=== PATIENT | male | born 1970 | race African-American/Black ===

== ENCOUNTER 2020-06-24 00:41 | Inpatient (IN) | payer OTHER ==
[2020-06-24] VITALS (11 sets, daily range): BP systolic 129–176; BP diastolic 59–102
[~2020-06-24] VITALS: Ht 190.5 cm; Wt 114.3 kg
[2020-06-24 01:54] LABS: ABSOLUTE NEUTROPHILS 4.2 thou/uL (1.4-8.2); BASOPHILS 0.4 % (0.0-2.0); EOSINOPHILS 2.2 % (0.0-3.0); HEMATOCRIT 42.9 % (42.0-52.0); HEMOGLOBIN 14.3 gm/dL (14.0-18.0); LYMPHOCYTES 20.9 % (24.0-44.0); MCH 27.7 pg (26.0-34.0); MCHC 33.3 g/dL (28.0-37.0); MCV 83.2 fL (80.0-100.0); PLATELET COUNT 681 thou/uL (150-400); POLYS 66.5 % (36.0-66.0); RBC 5.16 mil/uL (4.50-6.00); RDW 13.6 % (10.5-14.5); WBC 6.4 thou/uL (4.0-11.0)
[2020-06-24 02:07] LABS: CALCIUM 8.9 mg/dL (8.5-10.1)
[2020-06-24 02:08] LABS: POTASSIUM 3.8 mmol/L (3.5-5.1)
[2020-06-24 02:16] LABS: TROPONIN-I 5.11 ng/mL (<0.06)
[2020-06-24 04:30] LABS: PROTIME 11.3 Seconds (9.3-11.4)
--- NOTE | 2020-06-24 07:13 | EKG ---
[address] [address] ELECTROCARDIOGRAM REPORT Name: GASTON MELVIN Room #: 204-P ADM IN M.R.#: [id number] Admission: 06/24/20 Attend Phys: Ariel Baptiste MD Discharge: Date of : 70 Report #: [id number] [facility] ED Test Date: 2020-06-24 Test Time: 02:26:08 Pat Name: GASTON MELVIN Department: Room: 204 Gender: M Director [facility]: linda : 1970 Requested By: Michelle Ramos Order Number: [id number] : Antonio Boles Measurements Intervals [place] Rate: 68 P: 41 CA: 187 QRS: 14 QRSD: 90 T: 26 QT: 379 QTc: 404 Interpretive Statements Sinus rhythm No previous ECG available for comparison Electronically Signed On 06-24-2020 7:13:47 SUPERVISOR GRINDING by Antonio Boles [email or web address] <ELECTRONICALLY SIGNED> By: Antonio Boles MD, [facility] 06/24/20 0713 0226 0226 Antonio Boles MD, FACC /EPI
--- NOTE | 2020-06-24 07:45 | EKG ---
[place] [address] [facility] [place] [address] ELECTROCARDIOGRAM REPORT Name: GASTON MELVIN Room #: 204-P ADM IN M.R.#: [id number] Admission: 06/24/20 Attend Phys: Ariel Baptiste MD Discharge: Date of : 70 Report #: [id number] [facility] ED Test Date: 2020-06-24 Test Time: 01:25:42 Pat Name: GASTON MELVIN Department: Room: 204 Gender: M Manager Line: alo : 1970 Requested By: Michelle Ramos Order Number: [id number] MD: Jose Chappell Measurements Intervals [place] Rate: 73 P: 46 OR: 212 QRS: -4 QRSD: 95 T: 14 QT: 386 QTc: 426 Interpretive Statements Sinus rhythm Prolonged OR interval Poor R wave progression No previous ECG available for comparison Electronically Signed On 06-24-2020 7:44:55 QUALITY ASSURANCE ASSOCIATE by Jose Chappell [email or web address] <ELECTRONICALLY SIGNED> By: Jose Chappell MD, [facility] 06/24/20 0744 0125 0125 Jose Chappell MD, FACC /EPI
[2020-06-24 08:15] LABS: CHOLESTEROL 235 mg/dL (<200); HDL CHOLESTEROL 56 mg/dL (>40); LDL CHOLESTEROL 165 mg/dL (<100); TC:HDL 4.2 Ratio (Not establshd); TRIGLYCERIDE 73 mg/dL (<150); VLDL 15 mg/dL (<40)
[2020-06-24 08:23] LABS: TROPONIN-I 9.62 ng/mL (<0.06)
[2020-06-24 23:06] LABS: GLYCOHEMOGLOBIN (HGB A1C) 5.6 % (4.8-5.6)
[2020-06-25 02:20] VITALS: BP 140/94
[2020-06-25 03:51] VITALS: BP 152/100
[2020-06-25 04:04] LABS: HEMOGLOBIN 15.2 gm/dL (14.0-18.0)
[2020-06-25 04:06] LABS: ABSOLUTE NEUTROPHILS 5.3 thou/uL (1.4-8.2); BASOPHILS 0.3 % (0.0-2.0); EOSINOPHILS 1.2 % (0.0-3.0); HEMATOCRIT 45.7 % (42.0-52.0); LYMPHOCYTES 11.9 % (24.0-44.0); MCH 27.6 pg (26.0-34.0); MCHC 33.3 g/dL (28.0-37.0); MCV 82.8 fL (80.0-100.0); MONOCYTES 6.3 % (1.0-8.0); PLATELET COUNT 699 thou/uL (150-400); POLYS 80.3 % (36.0-66.0); RBC 5.51 mil/uL (4.50-6.00); RDW 13.7 % (10.5-14.5); WBC 6.6 thou/uL (4.0-11.0)
[2020-06-25 05:13] LABS: ALBUMIN 3.8 g/dL (3.4-5.0); CALCIUM 9.2 mg/dL (8.5-10.1); CREATININE 1.1 mg/dL (0.7-1.3); POTASSIUM 3.6 mmol/L (3.5-5.1); TOTAL BILIRUBIN 0.7 mg/dL (0.2-1.0); TOTAL PROTEIN 7.5 g/dL (6.4-8.2)
[2020-06-25 05:15] LABS: TROPONIN-I 14.95 ng/mL (<0.06)
--- NOTE | 2020-06-25 11:19 | CATHLAB ---
[facility] [place] [address] [address] [place] [address] INVASIVE PROCEDURE REPORT Name: GASTON MELVIN Room #: 206-P ADM IN M.R.#: [id number] Admission: 06/24/20 Attend Phys: Ariel Baptiste MD Discharge: Date of : 70 Report #: [id number] THIS REPORT FOR: cc: Anjum Sheppard James A. DO Mancuso, Gerald M. MD [facility] ~ APPROVED REPORT Study performed: 06/24/2020 07:42:36 Patient Details Patient Status: In-Patient Room #: 204 The patient is a 50 year-old male Event Personnel Rohit Langston Program Host, Liliya Gaytan RTR ScrubChad Ja'net RTR Monitor, Ciro Trinidad RN audio recording engineer Performed Left Heart Cath w/or w/o Coronaries [id number] [facility] [address] w/wo Plasty Single LAD 911527 Art Access - R femoral artery* Aortogram Abdominal Peripheral Angio 699706 Hemostasis w/ Mynx 61104 Initial Mod Sed Same Phys/QHP Gr5y 938889 92632 Mod Sed Same Phys/QHP Ea 401751 Indication Chest pain Procedure Narrative The patient was brought urgently to the Cardiac Catheterization Laboratory and was prepped and draped in a sterile manner. The Right Groin^ was infiltrated with 1% Lidocaine subcutaneous anesthesia. A PINNACLE 6FR Sheath #[id number] sheath was inserted into the RFA^. Coronary angiography was performed using coronary diagnostic catheters. The right coronary system was accessed and visualized with a JR4 catheter. The left coronary system was accessed and visualized with a JL4 catheter. The left ventricle was accessed and visualized with a PIGTAIL catheter. Closure device was deployed with a Fr MYNXGRIP 6/7F #[id number]. The patient tolerated the procedure well and there were no complications associated with the procedure. There was no hematoma. Intraoperative Conscious Sedation Sedation start time: 8:37 Case end Time: [facility] [address] [place] [address] INVASIVE PROCEDURE REPORT Name: GASTON MELVIN Room #: 206-P [facility] IN .R.#: [id number] Admission: 06/24/20 Attend Phys: Ariel Baptiste MD Discharge: Date of : 70 Report #: [id number] 9:45 Fentanyl 50 mcg Versed 1 mg Fluoro Time: 6.40 minutes Dose: DAP 17928.00 cGycm2 1817 mGy Contrast Type and Amount: Omnipaque 190 ml Hemodynamics The aortic pressure is 114/75 mmHg with a mean of 95 mmHg. The left ventricular pressure is 135/2 mmHg with a mean of mmHg. The left ventricular end diastolic pressure is 14 mmHg. PCI Technique Lesion Percutaneous coronary intervention was performed on the proximal left anterior descending artery segment. A LAUNCHER 6FR FR 4 #[id number] Guide Catheter was used to engage the LAD ostium. A Luge Wire .014 x 182CM #[id number] Interventional Guidewire was used to cross the lesion. STENT DEPLOYMENT A stent RESOLUTE CHRIS OTW 4.0 X 18 #[id number] was inserted and inflated up to 12.00atm for 18seconds. A SECOND STENT RESOLUTE CHRIS OTW 4.0 X 8 WAS INSERTED AND INFLATED UP TO 12 SREE FOR 11 SEC/MIN. ADDITIONAL INFLATION: 14 SREE FOR 9SEC/MIN. Conclusion #1. Successful primary stenting of a proximal LAD extensive clot thrombus formation with a 4 oh by 18 and 4.0 x 8 resolute [place] postdilated 4.1 mm SOLO grade III flow briskly filling the remainder of the LAD and diagonal system. #2 circumflex OM is nondominant widely patent #3 large dominant right coronary artery widely patent. #4 normal left jugular size with subtle anterior apical wall leg EF 50 to 55% #5 abdominal aortogram normal caliber abdominal aorta with brisk flow into renal arteries and iliac system. No evidence of clot formation. Recommendations and plan: This patient was initiated with heparin and Integrilin bolus and drips. Spontaneous formation of a large clot-like substance radiographically noted in the proximal LAD. This was a large vessel of 4.0 mm. Consideration of extraction or trapping with stenting was considered. Primarily stent was performed. No evidence of residual clot or distal embolization. Integrilin drip will be maintained transfer to CCU in stable condition with resolution of chest pain and EKG. Etiology of this spontaneous clot [facility] [address] [place] [address] INVASIVE PROCEDURE REPORT Name: GASTON MELVIN Room #: 206-P ADM IN M.R.#: [id number] Admission: 06/24/20 Attend Phys: Ariel Baptiste MD Discharge: Date of : 70 Report #: [id number] in this healthy 50-year-old male is not currently known. Hyper coag panel has been sent off. Patient remained stable upon transfer to the CCU with continued Integrilin drip. Will consider long-term dual antiplatelet therapy and combination of anticoagulation at least for some duration. Will discuss with hematology. And await hyper coag panel. <ELECTRONICALLY SIGNED> By: Rohit Langston MD, [facility] 06/25/20 1119 1119 Rohit Langston MD, FACC /INF
--- NOTE | 2020-06-25 11:22 | 2DMMODE ---
[facility] [place] [address] 2 D/M-MODE ECHOCARDIOGRAM Name: GASTON MELVIN Room #: 206-P ADM IN M.R.#: [id number] Admission: 06/24/20 Attend Phys: Ariel Baptiste MD Discharge: Date of : 70 Report #: [id number] THIS REPORT FOR: cc: Anjum Sheppard James A. DO Mancuso, Gerald M. MD [facility] ~ APPROVED REPORT Study performed: 06/25/2020 10:13:37 EXAM: Comprehensive 2D, Doppler, and color-flow Echocardiogram Patient Location: Bedside Room #: 206 Status: on-call BSA: 2.42 HR: 75 bpm BP: 152/100 mmHg Rhythm: NSR Other Information Study Quality: Adequate Risk Factors: Cardiac Risk Factors: HTN, Smoking Indications Non STEMI Chest Pain Dyspnea on Exertion 2D Dimensions IVSd: 10.31 (7-11mm) LVOT Diam: 22.00 (18-24mm) LVDd: 48.45 mm PWd: 9.92 (7-11mm) Ascending Ao: 27.92 (22-36mm) LVDs: 33.86 (25-40mm) Aortic Root: 28.93 mm LV Single Plane 4CH: 52.20 % LV Single Plane 2CH: 64.86 % Biplane EF: 60.0 % Volumes Left Atrial Volume (Systole) Single Plane 4CH: 61.51 mL Single Plane 2CH: 47.86 mL LA ESV Index: 25.00 mL/m2 [facility] [address] [place] [address] 2 D/M-MODE ECHOCARDIOGRAM Name: GASTON MELVIN Room #: 206-P ADM IN M.R.#: [id number] Admission: 06/24/20 Attend Phys: Ariel Baptiste MD Discharge: Date of : 70 Report #: [id number] Aortic Valve AoV Peak Chente.: 1.35 m/s AO Peak Gr.: 7.24 mmHg LVOT Max P.46 mmHg LVOT Max V: 0.93 m/s AYAZ Vmax: 2.63 cm2 Mitral Valve E/A Ratio: 0.8 MV Decel. Time: 298.07 ms MV E Max Chente.: 0.55 m/s MV A Chente.: 0.73 m/s MV PHT: 86.44 ms IVRT: 72.66 ms TDI E/Lateral E': 5.50 E/Medial E': 5.50 Medial E' Chente.: 0.10 m/s Lateral E' Chente.: 0.10 m/s Pulmonary Valve PV Peak Chente.: 0.00 m/s PV Peak Gr.: 4.22 mmHg Pulmonary Vein P Vein S: 0.42 m/s P Vein A: 0.30 m/s P Vein D: 0.35 m/s P Vein A Dur.: 93.4 msec P Vein S/D Ratio: 1.20 Tricuspid Valve TR Peak Chente.: 2.25 m/s RAP Estimate: 7.00 mmHg TR Peak Gr.: 20.24 mmHg PA Pressure: 27.00 mmHg Left Ventricle The left ventricle is normal size. There is normal left ventricular wall thickness. Left ventricular systolic function is normal. The left ventricular ejection fraction is within the normal range. LVEF is 55-60%. Mild diastolic dysfunction is present (impaired relaxation pattern). Right Ventricle The right ventricle is normal size. The right ventricular systolic function is normal. Atria The left atrium size is normal. Right atrium is mildly [facility] [address] [place] [address] 2 D/M-MODE ECHOCARDIOGRAM Name: GASTON MELVIN Room #: [facility] ADM IN M.R.#: [id number] Admission: 06/24/20 Attend Phys: Ariel Baptiste MD Discharge: Date of : 70 Report #: [id number] dilated. Aortic Valve The aortic valve is normal in structure. No aortic regurgitation is present. There is no aortic valvular stenosis. Mitral Valve The mitral valve is normal in structure. Trace mitral regurgitation. No evidence of mitral valve stenosis. Tricuspid Valve The tricuspid valve is normal in structure. Trace tricuspid regurgitation. Pulmonary artery pressure is 27 mmHg. Pulmonic Valve The pulmonary valve is normal in structure. There is no pulmonic valvular regurgitation. Great Vessels The aortic root is normal in size. The ascending aorta is normal in size. IVC is normal in size and collapses >50% with inspiration. Pericardium There is no pericardial effusion. <Conclusion> The left ventricle is normal size. LVEF is 55-60%. Mild diastolic dysfunction is present (impaired relaxation pattern). The right ventricle is normal size. The left atrium size is normal. Right atrium is mildly dilated. The aortic valve is normal in structure. Trace mitral regurgitation. Trace tricuspid regurgitation. Pulmonary artery pressure is 27 mmHg. The aortic root is normal in size. There is no pericardial effusion. <ELECTRONICALLY SIGNED> By: Rohit Langston MD, FACC 06/25/20 112 21 21 Rohit Langston MD, FACC /INF
[2020-06-25 12:00] VITALS: BP 132/79
[2020-06-25 15:45] VITALS: BP 128/77
[2020-06-25 20:00] VITALS: BP 129/74
[2020-06-25 23:45] VITALS: BP 135/86
[2020-06-26 04:00] VITALS: BP 137/94
[2020-06-26 08:00] VITALS: BP 155/96
[2020-06-26] MEDS ORDERED: BENICAR40 MG PO (08:39)
[2020-06-26] MEDS ORDERED: EFFIENT10 MG PO (08:39)
[2020-06-26] MEDS ORDERED: METOPROLOL SUCC25 M1 PO (08:39)
[2020-06-26] MEDS ORDERED: LIPITOR40 MG PO (08:39)
[2020-06-26] MEDS ORDERED: ASPIRIN325 PO ×2 (08:40→08:46)
[2020-06-26] MEDS ORDERED: XARELTO20 MG PO (11:00)
[2020-06-26 12:00] VITALS: BP 152/94
[2020-06-26 13:03] VITALS: BP 155/96
--- NOTE | 2020-06-26 14:08 | EKG ---
[address] [place] [address] ELECTROCARDIOGRAM REPORT Name: GASTON MELVIN Room #: 206-P DIS IN M.R.#: [id number] Admission: 06/24/20 Attend Phys: Ariel Baptiste MD Discharge: 06/26/20 Date of : 70 Report #: [id number] [facility] Test Date: 2020-06-25 Test Time: 07:22:34 Pat Name: GASTON MELVIN Department: Room: 206 P Gender: M Electronic Drafter: REINALDO : 1970 Requested By: Rohit Langston Order Number: [id number] MD: Jose Chappell Measurements Intervals [place] Rate: 74 P: 39 SC: 184 QRS: 29 QRSD: 84 T: 21 QT: 378 QTc: 420 Interpretive Statements Sinus rhythm Poor R wave progression Compared to ECG 06/24/2020 02:26:08 No significant changes Electronically Signed On 06-26-2020 14:08:05 CONVEYOR OPERATOR by Jose Chappell [email or web address] <ELECTRONICALLY SIGNED> By: Jose Chappell MD, [facility] 06/26/20 1408 0722 1 Jose Chappell MD, FACC /EPI
[2020-06-29 16:07] LABS: GLOBULIN TOTAL 3.4 g/dL (2.2-3.9); M-SPIKE Not Observed g/dL (Not Observed)
== END 2020-06-26 13:21 | disposition home or self-care (01) | DRG 246 ==
LOC: ER 00:41 → EROBS 03:29 → 2N 03:29
PROVIDERS: Emergency Medicine; Internal Medicine Cardiovascular Disease; Nurse Practitioner; Nurse Practitioner Adult Health; Nurse Practitioner Family; ADMIT Internal Medicine; ATTEND Internal Medicine
PROC: 027035Z Dilation of Coronary Artery, One Artery with Two Drug-eluting Intraluminal Devices, Percutaneous Approach (ICD-10-PCS; principal; 2020-06-24)
PROC: 4A023N7 Measurement of Cardiac Sampling and Pressure, Left Heart, Percutaneous Approach (ICD-10-PCS; 2020-06-24)
PROC: B2111ZZ Fluoroscopy of Multiple Coronary Arteries using Low Osmolar Contrast (ICD-10-PCS; 2020-06-24)
PROC: B41D1ZZ Fluoroscopy of Aorta and Bilateral Lower Extremity Arteries using Low Osmolar Contrast (ICD-10-PCS; 2020-06-24)
PROC: 3E033PZ Introduction of Platelet Inhibitor into Peripheral Vein, Percutaneous Approach (ICD-10-PCS; 2020-06-24)
DX: I21.4 Non-ST elevation (NSTEMI) myocardial infarction (principal); I50.33 Acute on chronic diastolic (congestive) heart failure; D68.69 Other thrombophilia; E78.5 Hyperlipidemia, unspecified; I10 Essential (primary) hypertension; F17.210 Nicotine dependence, cigarettes, uncomplicated; D47.3 Essential (hemorrhagic) thrombocythemia; I08.1 Rheumatic disorders of both mitral and tricuspid valves; I24.9 Acute ischemic heart disease, unspecified; Z20.822 Contact with and (suspected) exposure to COVID-19; Z88.0 Allergy status to penicillin; Z88.5 Allergy status to narcotic agent
CPT/HCPCS: 10081